=== PATIENT | female | born 1990 | race Caucasian/White ===

== ENCOUNTER → 2025-10-28 | Outpatient (CLI) | payer MEDICAID, SELFPAY ==
[2025-10-27 10:17] LABS: HCG Qualitative,Urine Negative
--- NOTE | 2025-10-28 07:30 | XR_ITS ---
Examination: CT abdomen and pelvis without contrast. Coronal 3-D reconstructions. Sagittal 2-D reconstructions. Date and time of exam: October 28, 2025, 0728 hours, comparison May 31, 2021 INDICATIONS: History soft tissue mass anterior left pelvic wall extending into the subcutaneous fatty tissue, 24 x 18 x [address] examination May 31, 2021, patient states palpable lump in the left lower pelvic area 2 years CTDI: vol (mGy): 6.63 DLP: (mGycm): 355 Technique: Axial images of the abdomen have been obtained, 3 mm slice thickness Intravenous contrast material has not been administered. Low dose protocols were performed. One or more of the following dose reduction techniques were used; automated exposure control, adjustment of the mA and/or KV according to patient size, use of iterative reconstruction technique. Findings: No focal liver or splenic lesions No gallstones or pancreatic mass 1 to 2 mm bilateral renal calculi, no hydronephrosis or ureteral calculi 15 mm fat-containing umbilical hernia No bowel obstruction Normal appendix No diverticulitis Retroverted uterus with mild free fluid in the pelvis Unchanged soft tissue mass anterior left pelvic wall extending into the subcutaneous fatty tissue, 24 x 24 mm Contracted urinary bladder Osseous structures are intact IMPRESSION: Bilateral nonobstructing renal calculi Unchanged soft tissue mass anterior left pelvic wall, 24 x 24 mm, recommend ultrasound soft tissue pelvic wall follow-up
== END | disposition home or self-care (01) ==
PROVIDERS: PCP Student in an Organized Health Care Education/Training Program; Referring Provider Student in an Organized Health Care Education/Training Program; Visit Provider Student in an Organized Health Care Education/Training Program
DX: N20.0 Calculus of kidney (principal); R19.09 Other intra-abdominal and pelvic swelling, mass and lump; Z32.00 Encounter for pregnancy test, result unknown
CPT/HCPCS: 74176; 81025